=== PATIENT | male | born 1935 | race Caucasian/White ===

== ENCOUNTER 2023-09-28 10:57 | Outpatient (OUT) | payer MEDICARE, BC, SELFPAY ==
--- NOTE | 2023-09-28 11:59 | ECG_ITS ---
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
--- NOTE | 2023-09-28 11:59 | XR_ITS ---
The [address] [address] Patient Name: PATRICIA VALENZUELA MRN: [id number] date: 1935 Sex: M Assigned Patient Location: [facility] Current Patient Location: Accession/Order Number: [id number] Exam Date: 09/28/2023 13:16 Report Date: 09/29/2023 09:38 At the request of: ANGY GUDINO Procedure: XR chest 2V PROCEDURE: XR chest 2V DATE: 09/28/2023 12:16 PM CDT COMPARISONS: CT chest 12/31/2015. Chest x-ray 11/18/2015 CLINICAL INDICATION: 88 years Male RENAL FAILURE FINDINGS: The cardiomediastinal silhouette and pulmonary vasculature are within normal limits. There is slight scattered increased interstitial markings of the lungs similar to previous exams likely representing a small amount of chronic lung change. There is no evidence of consolidating infiltrates, masses or nodules on today's exam. There is no evidence of pleural effusion or pneumothorax. XR/XR chest 2V IMPRESSION: Small amount of scattered chronic lung changes. Stable chest. Electronically authenticated by: PABLO BELTRAN Date: 09/29/2023 09:38
--- NOTE | 2023-09-28 13:27 | PM.PRESUREVA ---
History of Present Illness History of Present Illness Chief complaint: temporal arteritis Narrative: Patient presents for preadmission testing accompanied by his . The patient states he has just been diagnosed with temporal arteritis after complaining about pain on the left side of his head. 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 He denies syncope, weakness, dizziness, nausea, vomiting, or any other complaints. The patient has chronic renal failure and administers home peritoneal dialysis on a nightly basis. Review of Systems ROS Narrative REVIEW OF SYSTEMS: Negative except as stated in HPI, ten or more systems reviewed. Constitutional: No fever, chills, weakness ENT: No sore throat or epistaxis Cardiovascular: No chest pain or palpitations Respiratory: Admits to AHUJA and cough when laying flat Musculoskeletal: No joint pain or swelling Gastrointestinal: No abdominal pain, constipation, diarrhea, or vomiting Psychiatric: No mood changes [facility] Medical History (Updated 09/28/23 @ 13:34 by Dianelys Roman NP) Nocturnal cough ?R05.8 - Other specified cough (ICD-10) Sleep apnea ?G47.30 - Sleep apnea, unspecified (ICD-10) Extremity edema ?R60.0 - Localized edema (ICD-10) Skin cancer ?C44.90 - Unspecified malignant neoplasm of skin, unspecified (ICD-10) Legally blind ?H54.8 - Legal blindness, as defined in [place] (ICD-10) Joint pain ?M25.50 - Pain in unspecified joint (ICD-10) GERD (gastroesophageal reflux disease) ?K21.9 - Gastro-esophageal reflux disease without esophagitis (ICD-10) Dyspnea on exertion ?R06.09 - Other forms of dyspnea (ICD-10) Wears dentures ?Z97.2 - Presence of dental prosthetic device (complete) (partial) (ICD-10) Chronic pain ?G89.29 - Other chronic pain (ICD-10) Bradycardia ?R00.1 - Bradycardia, unspecified (ICD-10) TIA (transient ischemic attack) (~2004) ?G45.9 - Transient cerebral ischemic attack, unspecified (ICD-10) Encounter for peritoneal dialysis catheter insertion ?Z49.02 - Encounter for fitting and adjustment of peritoneal dialysis catheter (ICD-10) ESRD on hemodialysis ?N18.6 - End stage renal disease (ICD-10) ?Z99.2 - Dependence on renal dialysis (ICD-10) Renal cyst ?N28.1 - Cyst of kidney, acquired (ICD-10) Macular degeneration ?H35.30 - Unspecified macular degeneration (ICD-10) Seizures ?R56.9 - Unspecified convulsions (ICD-10) Osteoarthritis of right knee ?M17.11 - Unilateral primary osteoarthritis, right knee (ICD-10) Arthritis ?M19.90 - Unspecified osteoarthritis, unspecified site (ICD-10) 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 - Arteriovenous fistula, acquired (ICD-10) Dependence on renal dialysis ?Z99.2 - Dependence on renal dialysis (ICD-10) Complication of dialysis access insertion ?T82.9XXA - Unspecified complication of cardiac and vascular prosthetic device, implant and graft, initial encounter (ICD-10) Chronic kidney disease ?N18.9 - Chronic kidney disease, unspecified (ICD-10) Anemia ?D64.9 - Anemia, unspecified (ICD-10) Diabetic neuropathy ?E11.40 - Type 2 diabetes mellitus with diabetic neuropathy, unspecified (ICD-10) Diabetes ?E11.9 - Type 2 diabetes mellitus without complications (ICD-10) Hyperlipidemia ?E78.5 - Hyperlipidemia, unspecified (ICD-10) Hypertension ?I10 - Essential (primary) hypertension (ICD-10) Renal insufficiency ?N28.9 - Disorder of kidney and ureter, unspecified (ICD-10) Lower urinary tract symptoms ?R39.9 - Unspecified symptoms and signs involving the genitourinary system (ICD-10) Elevated PSA ?R97.20 - Elevated prostate specific antigen [PSA] (ICD-10) History of nephrolithiasis ?Z87.442 - Personal history of urinary calculi (ICD-10) Temporal arteritis ?M31.6 - Other giant cell arteritis (ICD-10) Bladder cancer ?C67.9 - Malignant neoplasm of bladder, unspecified (ICD-10) Surgical History (Updated 09/28/23 @ 11:54 by Dianelys Roman NP) S/P rotator cuff repair ?Z98.890 - Other specified postprocedural states (ICD-10) History of prostate surgery ?Z98.890 - Other specified postprocedural states (ICD-10) History of hernia repair ?Z98.890 - Other specified postprocedural states (ICD-10) ?Z87.19 - Personal history of other diseases of the digestive system (ICD-10) S/P TURP ?Z90.79 - Acquired absence of other genital organ(s) (ICD-10) History of bladder surgery ?Z98.890 - Other specified postprocedural states (ICD-10) H/O local excision of skin lesion ?Z98.890 - Other specified postprocedural states (ICD-10) H/O radiofrequency ablation (RFA) of nerve of lumbar spine ?Z98.890 - Other specified postprocedural states (ICD-10) H/O cystoscopy ?Z98.890 - Other specified postprocedural states (ICD-10) Family History (Updated 09/28/23 @ 11:54 by Dianelys Roman NP) Other Dementia Family history of diabetes mellitus Family history of hypertension Social History (Updated 09/28/23 @ 12:28 by Dianelys Roman NP) Within the past year, how often did you have a drink containing alcohol: never Score interpretation: A score less than 4 is consistent with normal alcohol consumption. Smoking status: Former smoker Non-prescribed substance use: denies use Highest level of school completed/degree received: high school graduate Meds Home Medications and Allergies Home Medications ?Medication ?Instructions ?Recorded ?Confirmed ?Type amlodipine 5 mg tablet 10 mg PO DAILY 09/28/23 09/28/23 History aspirin 81 mg tablet,delayed 81 mg PO DAILY 09/28/23 09/28/23 History release (Adult Aspirin Regimen) atorvastatin 10 mg tablet 10 mg PO DAILY 09/28/23 09/28/23 History bumetanide 2 mg tablet 4 mg PO DAILY 09/28/23 09/28/23 History cholecalciferol (vitamin D3) 25 1,000 unit PO QDAY 09/28/23 09/28/23 History mcg (1,000 unit) capsule epoetin brandon 2,000 unit/mL 09/28/23 History injection solution (Epogen) glimepiride 1 mg tablet 2 mg PO BID 09/28/23 09/28/23 History ibuprofen 800 mg tablet (IBU) 800 mg PO Q8H 09/28/23 09/28/23 History levetiracetam 250 mg tablet 250 mg PO BID 09/28/23 09/28/23 History (Keppra) losartan 25 mg tablet (Cozaar) 25 mg PO DAILY 09/28/23 09/28/23 History sevelamer carbonate 800 mg tablet 1,600 mg PO TID 09/28/23 09/28/23 History (Renvela) sildenafil 50 mg tablet (Viagra) 50 mg PO DAILY PRN sexual activity 09/28/23 09/28/23 History vitamin B complex with vit C-folic 1 tab PO DAILY 09/28/23 09/28/23 History acid 800 mcg-zinc 12.5 mg tablet (RenaPlex) vitamins A,C,O-pfzw-fpijqh 4,296 1 cap PO DAILY 09/28/23 09/28/23 History mcg-226 mg-90 mg capsule (ICaps AREDS) Allergies Allergy/AdvReac Type Severity Reaction Status Date / Time No Known Drug Allergies Allergy Verified 09/28/23 12:18 Exam Narrative Exam Narrative: Constitutional: Awake, alert, comfortable, chronically ill-appearing, nontoxic, interactive, vital signs as charted Head: Normocephalic, atraumatic Neck: Supple, normal appearance, normal range of motion, no meningeal signs, no lymphadenopathy Respiratory: No respiratory distress, breath sounds clear Cardiovascular: Regular rate and rhythm, strong and regular heart tones Musculoskeletal: Normal gait, no swelling or edema Skin: Pale yellow-orange skin tone Neuro: No obvious neurological deficits Psychiatric: Oriented ?3, normal affect Assessment and Plan Assessment and Plan (1) Temporal arteritis: Plan Bilateral temporal artery biopsy scheduled with Dr. Dixon September 29, 2023.
[2023-09-28 13:29] LABS: Partial Thromboplastin Time 26.5 sec (22.3-36.2); Prothrombin Time 10.6 sec (9.0-11.6)
[2023-09-28 13:39] LABS: Hematocrit 32.4 % (42.0-54.0); Hemoglobin 10.4 g/dL (14.0-18.0); Mean Corpuscular HGB Conc 32.1 g/dL (29.9-35.2); Mean Corpuscular Hemoglobin 35.9 pg (25.9-34.0); Mean Corpuscular Volume 111.7 fL (80.0-94.0); Mean Platelet Volume 11.2 fL (9.5-13.5); Platelet Count 211 10^3/uL (150-450); Red Cell Distribution Width 12.8 % (11.0-15.0); White Blood Count 8.2 10^3/uL (4.0-11.0)
[2023-09-28 14:38] LABS: Anion Gap 18.4; BUN Creatinine Ratio 6.3; Calcium 8.6 mg/dL (8.5-10.1); Carbon Dioxide 26.7 mmol/L (21.0-32.0); Chloride 97 mmol/L (98-107); Estimated GFR (African America 8 (>=60); Estimated GFR (Non-African Ame 7 (>=60); Glucose 225 mg/dL (74-106); Potassium 4.1 mmol/L (3.5-5.1); Sodium 138 mmol/L (136-145)
[2023-09-28 15:14] LABS: Anisocytosis 1+; Basophils Abs Manual 0.08 10^3/uL (0.00-0.10); Eosinophils Absolute Manual 0.57 10^3/uL (0.00-0.70); Macrocytosis 1+; Monocytes Absolute Manual 0.24 10^3/uL (0.30-0.80); Segmented Neut Absolute Manual 6.39 10^3/uL (1.4-6.5)
== END 2023-09-28 10:58 | disposition home or self-care (01) ==
LOC: PST 11:02
PROVIDERS: PCP Family Medicine; Visit Provider Student in an Organized Health Care Education/Training Program
DX: Z01.810 Encounter for preprocedural cardiovascular examination (principal); Z01.812 Encounter for preprocedural laboratory examination; Z01.818 Encounter for other preprocedural examination
CPT/HCPCS: 36415; 71046; 80048; 85007; 85027; 85610; 85730; 93005; G0463

== ENCOUNTER 2023-09-29 11:02 | Day surgery (SDC) | payer MEDICARE, BC, SELFPAY ==
[2023-09-28 12:57] VITALS: BP 132/58; PULSE 72; TEMP 36.2; O2SAT 95; BMI 25.5
[2023-09-29 11:15] VITALS: BP 127/51; PULSE 56; TEMP 36.3; O2SAT 56; BMI 25.0
--- OUTSIDE RECORDS SUMMARY | 2023-09-29 11:22 | XMS_ITS | CCD ---
Author Organization [facility] Care Team Providers Care Dental Technician Apprentice Name Role Phone JIGNESH BURNS Attending Unavailable DefPatricia lowe MD Primary Care Provider MICHAEL SHERIDAN Referring Unavailable DEFRANCE, PATRICIA Pineda Primary Care Unavailable DEFRANCE, PATRICIA Pineda Referring Unavailable DEFRANCE, PATRICIA Pineda Primary Care Unavailable JOHNMICHAEL Mejia Referring Unavailable DEFRANCE, PATRICIA Pineda Primary Care Unavailable JOHNMICHAEL Mejia Referring Unavailable DEFRANCE, PATRICIA Pineda Primary Care Unavailable DEFRANCE, PATRICIA Pineda Referring Unavailable DEFRANCE, PATRICIA Pineda Primary Care Unavailable CHUY CASTREJON Admitting Unavailable EDUARDOCHUY SMITH Attending Unavailable DEFRANCE, PATRICIA Pineda Primary Care Unavailable MICHAEL SHERIDAN Referring Unavailable DEFRANCE, PATRICIA Pineda Primary Care Unavailable DEFRANCE, PATRICIA Pineda Attending Unavailable DEFRANCE, PATRICIA Pineda Referring Unavailable DEFRANCE, PATRICIA Pineda Primary Care Unavailable DEFRANCE, PATRICIA Pineda Attending Unavailable DEFRANCE, PATRICIA Pineda Referring Unavailable DEFRANCE, PATRICIA Pineda Primary Care Unavailable Medications Current Medications Medication Drug Class(es) Dates Sig (Normalized) Sig (Original) amLODIPine 10 mg oral tablet (8 sources) Dihydropyridine Calcium Channel Padmini Start: 09-09-2023 take 10 mg by mouth once Amlodipine Active 10 MG PO Once September 09, 2023 12:00am take 1 tablet by mouth in the mo rning amLODIPine (NORVASC) 5 mg tablet Take 1 tablet (5 mg total) by mouth in the morning. 0 Active aspirin 81 mg delayed release oral tablet (8 sources) Platelet Aggregation Inhibitor, Nonsteroidal Anti-inflammatory Drug Start: 09-09-2023 take 81 mg by mouth once daily Aspirin Active 81 MG PO Daily September 09, 2023 12:00am aspirin 81 mg ch ewable tablet Chew 1 tablet (81 mg total) and swallow once daily at bedtime. 0 Active atorvastatin 10 mg oral tablet (8 sources) HMG-CoA Reductase Inhibitor Start: 09-09-2023 take 10 mg by mouth once daily in the evening Atorvastatin Active 10 MG PO Every evening September 09, 2023 12:00am Start: 05-27-2023 atorvastatin ( LIPITOR) 10 mg tablet TAKE 1 TABLET EVERY DAY 90 tablet 3 05/27/2023 Active B Complex-Vitamin C-Folic Acid (Renal Vitamin) 0.8 mg tablet (1 source) Start: 09-09-2023 take 1 tablet by mouth once daily B Complex-Vitamin C-Folic Acid (Renal Vitamin) 0.8 mg tablet Active 1 TAB PO Daily September 09, 2023 12:00am blood-glucose meter misc (7 sources) Start: 04-06-2022 blood-glucose meter misc Freestyle Lite Glucometer, use once daily, Diagnosis: E11.9 1 each 0 04/06/2022 Active bumetanide 2 mg oral tablet (8 sources) Loop Diuretic Start: 09-09-2023 take 2 mg by mouth twice daily Bumetanide Active 2 MG PO Twice daily September 09, 2023 12:00am take 2 tablets by mo uth once daily before breakfast bumetanide (BUMEX) 2 mg tablet Take 2 tablets (4 mg total) by mouth every morning before breakfast. 0 Active cefdinir 300 mg oral capsule (5 sources) Cephalosporin Antibacterial Start: 07-07-2023 End: 08-06-2023 take 1 capsule by mouth in the morning cefDINIR (OMNICEF) 300 mg capsule Take 1 capsule (300 mg total) by mouth in the morning for 15 days. 15 capsule 0 07/22/2023 08/06/2023 Active cholecalciferol 0.025 mg oral tablet (7 sources) Vitamin D take 1 tablet by mouth in the morning cholecalciferol 1,000 units tablet Take 1 tablet (1,000 Units total) by mouth in the morning. 0 Active glimepiride 4 mg oral tablet (10 sources) Sulfonylurea Start: 09-09-2023 take 4 mg by mouth once Glimepiride Active 4 MG PO Once September 09, 2023 12:00am Start: 07-22-2023 take 0.5 tablet by m outh once daily in the morning glimepiride (AMARYL) 2 mg tablet Indications: Diabetes mellitus without complication (CMS-HCC) Take 0.5 tablets (1 mg total) by mouth every morning. 0 07/22/2023 Active Start: 07-21-2023 End: 07-22-2023 take 1 tablet by mouth once daily in the morning glimepiride (AMARYL) 2 mg tablet Indications: Diabetes mellitus without complication (CMS-HCC) Take 1 tablet (2 mg total) by mouth every morning. 90 tablet 3 07/21/2023 07/22/2023 Discontinued (Reorder) Start: 05-27-2023 End: 07-21-2023 take 1 tablet by mouth once daily before breakfast glimepiride (AMARYL) 4 mg tablet Take 1 tablet (4 mg total) by mouth every morning before breakfast. 90 tablet 3 05/27/2023 07/21/2023 Discontinued (Dose adjustment) levETIRAcetam 500 mg oral tablet (8 sources) Start: 09-09-2023 take 250 mg by mouth twice daily Levetiracetam Active 250 MG PO Twice daily September 09, 2023 12:00am take 0.5 tablet by m outh in the morning, then take 0.5 tablet by mouth at bedtime levETIRAcetam (KEPPRA) 500 mg tablet Gonsalo e 0.5 tablets (250 mg total) by mouth in the morning and 0.5 tablets (250 mg total) before bedtime. 0 Active losartan potassium 25 mg oral tablet (9 sources) Angiotensin 2 Receptor Padmini Start: 09-09-2023 take 25 mg by mouth once daily Losartan Active 25 MG PO Daily September 09, 2023 12:00am Start: 03-30-2022 End: 06-15-2023 losartan (COZAAR) 25 mg tabl et TAKE 1 TABLET EVERY DAY 90 tablet 3 06/15/2023 Active 0.3 ml methoxy polyethylene glycol-epoetin beta 0.667 mg/ml prefilled syringe (7 sources) epoetin beta, methoxy peg (MIRCERA) 200 mcg/0.3 mL syringe Inject 200 mcg as directed every 14 (fourteen) days. 0 Active NON FORMULARY (7 sources) NON FORMULARY 2 (two) times a day. I caps 0 Active sevelamer carbonate 800 mg oral tablet (10 sources) Phosphate Binder Start: 09-09-2023 take 1600 mg by mouth three times daily Sevelamer Carbonate Active 1600 MG PO Three times daily September 09, 2023 12:00am Start: 05-30-2023 sevelamer (ESTRELLA CHEEMA) 800 mg tablet Take 2 tablets (1,600 mg total) by mouth in the morning and 2 tablets (1,600 mg total) at noon and 2 tablets (1,600 mg total) in the evening. Take with meals. 180 tablet 11 05/30/2023 Active Start: 03-01-2023 End: 05-30-2023 sevelamer (RENVELA) 800 mg t ablet End: 05-30-2023 take 2 tablets by mouth three times daily at mealtime SEVELAMER HCL ORAL Take 2 tablets by mouth 3 (three) times a day with meals. 0 05/30/2023 Discontinued sildenafil 50 mg oral tablet (6 sources) Phosphodiesterase 5 Inhibitor Start: 06-02-2023 sildenafiL (VIAGRA) 50 mg tablet Take 1 tablet (50 mg total) by mouth as needed for erectile dysfunction. 20 tablet 3 06/02/2023 Active vit B complx C/folic acid/zinc (RENAPLEX ORAL) (7 sources) take 1 tablet by mouth in the morning vit B complx C/folic acid/zinc (RENAPLEX ORAL) Take 1 tablet by mouth in the morning. 0 Active Vit C-E-Zinc Te-Oywp-Klm-Zeax (Icaps Areds2) 250 mg-200 unit -12.5 mg-1 mg capsule (1 source) Start: 09-09-2023 take 1 capsule by mouth twice daily Vit C-E-Zinc Go-Bxbo-Kwj-Zeax (Icaps Areds2) 250 mg-200 unit -12.5 mg-1 mg capsule Active 1 CAP PO Twice daily September 09, 2023 12:00am Problems Active Problems Problem Classification Problem Date Documented Date Episodic/Chronic Cancer of bladder (17 sources) Malignant tumor of urinary bladder; Translations: [Malignant neoplasm of bladder, unspecified] Onset: 05-04-2016 03-11-2023 Chronic Chronic kidney disease (20 sources) Anemia in chronic kidney disease; Translations: [Chronic kidney disease, unspecified] Onset: 10-12-2019 10-12-2019 Chronic Deficiency and other anemia (1 source) Anemia in chronic kidney disease; Translations: [Anemia in chronic kidney disease] Onset: 07-13-2023 Chronic Diabetes mellitus with complications (10 sources) Renal disorder due to type 2 diabetes mellitus; Translations: [Type 2 diabetes mellitus with diabetic nephropathy] Onset: 03-29-2017 03-29-2017 Chronic Diabetes mellitus without complication (9 sources) Diabetes mellitus without complication; Translations: [Type 2 diabetes mellitus without complications] Onset: 03-29-2017 Resolved: 03-29-2017 03-29-2017 Chronic Disorders of lipid metabolism (7 sources) Hyperlipidemia; Translations: [Hyperlipidemia, unspecified] Onset: 03-29-2017 03-29-2017 Chronic Essential hypertension (7 sources) Benign essential hypertension; Translations: [Essential (primary) hypertension] Onset: 03-29-2017 03-29-2017 Chronic Osteoarthritis (14 sources) Osteoarthritis of right knee joint; Translations: [Unilateral primary osteoarthritis, right knee] Onset: 10-02-2020 11-24-2021 Chronic Other circulatory disease (8 sources) Acquired arteriovenous fistula; Translations: [Arteriovenous fistula, acquired] Onset: 07-22-2020 07-22-2020 Chronic Other circulatory disease (1 source) Arteriovenous fistula, acquired; Translations: [Arteriovenous fistula, acquired] Onset: 07-22-2020 Chronic Other ear and sense organ disorders (1 source) Otalgia, left ear; Translations: [Otalgia, left ear] Onset: 09-13-2023 Episodic Other ear and sense organ disorders (1 source) Impacted cerumen; Translations: [Impacted cerumen, left ear] 09-09-2023 Episodic Other ear and sense organ disorders (1 source) Impacted cerumen, left ear; Translations: [Impacted cerumen] 09-09-2023 Episodic Other lower respiratory disease (1 source) Dyspnea, unspecified; Translations: [Dyspnea, unspecified] Onset: 06-28-2023 Episodic Otitis media and related conditions (2 sources) Otitis media of left ear; Translations: [Otitis media, unspecified, left ear] 09-09-2023 Episodic Pneumonia (except that caused by tuberculosis or sexually transmitted disease) (2 sources) Bronchopneumonia; Translations: [Bronchopneumonia, unspecified organism] Onset: 07-07-2023 07-07-2023 Episodic Retinal detachments; defects; vascular occlusion; and retinopathy (9 sources) 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; Translations: [Exudative age-related macular degeneration, left eye, stage unspecified] Onset: 12-11-2020 11-03-2021 Chronic Unclassified (1 source) Other specified cough; Translations: [Other specified cough] Onset: 06-28-2023 Unclassified (1 source) Malignant neoplasm of urinary bladder, unspecified site ([facility]) [C67.9] Onset: 04-12-2023 Unclassified (1 source) Routine Check up Onset: 07-07-2023 Past or Other Problems Problem Classification Problem Date Documented Date Episodic/Chronic Calculus of urinary tract (14 sources) Kidney stone; Translations: [Calculus of kidney] Onset: 05-04-2016 02-21-2017 Episodic Complication of device; implant or graft (7 sources) Complication of dialysis; Translations: [Unspecified complication of cardiac and vascular prosthetic device, implant and graft, initial encounter] Onset: 05-26-2020 05-26-2020 Episodic Deficiency and other anemia (7 sources) Iron deficiency anemia; Translations: [Iron deficiency anemia, unspecified] Onset: 06-08-2022 06-08-2022 Episodic Epilepsy; convulsions (9 sources) Seizure; Translations: [Unspecified convulsions] Onset: 03-10-2021 03-10-2021 Episodic Genitourinary symptoms and ill-defined conditions (14 sources) Lower urinary tract symptoms; Translations: [Unspecified symptoms and signs involving the genitourinary system] Onset: 05-04-2016 10-17-2018 Episodic Mood disorders (7 sources) Mood disorders Onset: 04-05-2023 Resolved: 07-07-2023 04-05-2023 Other diseases of kidney and ureters (14 sources) Cyst of kidney; Translations: [Cyst of kidney, acquired] Onset: 05-04-2016 07-12-2022 Episodic Other diseases of kidney and ureters (14 sources) Renal impairment; Translations: [Disorder of kidney and ureter, unspecified] Onset: 05-04-2016 07-12-2022 Episodic Other non-traumatic joint disorders (7 sources) Hip pain; Translations: [Pain in left hip] Onset: 03-29-2017 Resolved: 10-01-2019 10-01-2019 Episodic Other screening for suspected conditions (not mental disorders or infectious disease) (15 sources) Raised prostate specific antigen; Translations: [Elevated prostate specific antigen [PSA]] Onset: 05-04-2016 11-27-2019 Episodic Unclassified (7 sources) Onset: 09-01-2018 09-01-2018 Results Test Name Value Interpretation Reference Range Facility POCT Hemoglobin A1C - [facility] 07-21-2023 HbA1c (Bld) [Mass fraction] 6.5 % Abnormal 4 - 6 [facility] Interpretation and review of laboratory results Abnormal [facility] HEMOGLOBINon 07-13-2023 Hemoglobin (Bld) [Mass/Vol] 10.0 g/dL Low 13.0-17.0 [facility] Comment on above: Performed By: #### 7 18-7 ####[facility] ([id number])[address] [place] [address] XR CHEST 2 VWSon 06-28-2023 XR CHEST 2 VWS XR CHEST 2 VWS PA and lateral chest: HISTORY: Cough. 2 views the chest are obtained compared to prior exam dated 11/07/2019. There is new bilateral lower lobe infiltrates, right worse than left. No pneumothorax is seen. Suspect changes of COPD. Osseous structures are intact. Cardiac contour is stable. IMPRESSION: COPD and bilateral lower lobe infiltrates. Finalized by Carlos Stewart MD on 06/28/2023 3:39 PM Normal [facility] HEMOGLOBINon 05-25-2023 Hemoglobin (Bld) [Mass/Vol] 9.4 g/dL Low 13.0-17.0 [facility] Comment on above: Performed By: #### 7 18-7 ####[facility] ([id number])[address] [facility], [address] [place] [address] CBC AND AUTO DIFFon 04-20-20 23 ABSOLUTE BASOPHIL 0.1 X10E9/L Normal 0.0-0.2 [facility] Comment on above: Performed By: #### C BCA, 2857-1, CMP, 54902-1, THYR #### [facility] ([id number]) [address], [address] [place] [address] ABSOLUTE NEUTROPHIL 5.6 X10E9/L Normal 1.5-6.6 [facility] Comment on above: Performed By: #### Jennifer BCA, 2857-1, CMP, 44432-0, THYR #### [facility] ([id number]) [address], [address] [place] [address] Basophils/100 WBC (Bld) 1.0 % Normal [facility] Comment on above: Performed By: #### Jennifer BCA, 2857-1, CMP, 10084-3, THYR #### [facility] ([id number]) [address], [address] [place] [address] Eosinophils (Bld) [#/Vol] 0.7 10*3/uL High 0.0-0.4 [facility] Comment on above: Performed By: #### Jennifer BCA, 2857-1, CMP, 42823-1, THYR #### [facility] ([id number]) [address], [address] [place] [address] Eosinophils/100 WBC (Bld) 8.4 % Normal [facility] Comment on above: Performed By: #### Jennifer BCA, 2857-1, CMP, 62920-3, THYR #### [facility] ([id number]) [address], [address] [place] [address] Erythrocyte distribution width (RBC) [Ratio] 12.1 % Normal 11.5-15.0 [facility] Comment on above: Performed By: #### Jennifer BCA, 2857-1, CMP, 69705-5, THYR #### [facility] ([id number]) [address], [address] [place] [address] Hematocrit (Bld) [Volume fraction] 27.2 % Low 39-49 [facility] Comment on above: Performed By: #### C BCA, 2857-1, CMP, 19259-2, THYR #### [facility] ([id number]) [address], [address] [place] [address] Hemoglobin (Bld) [Mass/Vol] 9.4 g/dL Low 13.0-17.0 [facility] Comment on above: Performed By: #### Jennifer BCA, 2857-1, CMP, 08924-1, THYR #### [facility] ([id number]) [address], [address] [place] [address] Lymphocytes (Bld) [#/Vol] 0.8 10*3/uL Low 1.0-3.5 [facility] Comment on above: Performed By: #### Jennifer BCA, 2857-1, CMP, 36612-6, THYR #### [facility] ([id number]) [address], [address] [place] [address] Lymphocytes/100 WBC (Bld) 9.6 % Normal [facility] Comment on above: Performed By: #### Jennifer BCA, 2857-1, CMP, 79403-3, THYR #### [facility] ([id number]) [address], [address] [place] [address] MCH (RBC) [Entitic mass] 36.7 pg High 27-34 [facility] Comment on above: Performed By: #### C BCA, 2857-1, CMP, 83336-9, THYR #### [facility] ([id number]) [address], [address] [place] [address] MCHC (RBC) [Mass/Vol] 34.4 g/dL Normal 32-36 [facility] Comment on above: Performed By: #### C BCA, 2857-1, CMP, 42654-5, THYR #### [facility] ([id number]) [address], [address] [place] [address] MCV (RBC) [Entitic vol] 107 fL High 80-100 [facility] Comment on above: Performed By: #### Jennifer BCA, 2857-1, CMP, 35805-9, THYR #### [facility] ([id number]) [address], [address] [place] [address] Monocytes (Bld) [#/Vol] 0.8 10*3/uL Normal 0-0.9 [facility] Comment on above: Performed By: #### Jennifer BCA, 2857-1, CMP, 15536-0, THYR #### [facility] ([id number]) [address], [address] [place] [address] Monocytes/100 WBC (Bld) 10.6 % Normal [facility] Comment on above: Performed By: #### Jennifer BCA, 2857-1, CMP, 69245-7, THYR #### [facility] ([id number]) [address], [address] [place] [address] Neutrophils/100 WBC (Bld) 70.4 % Normal [facility] Comment on above: Performed By: #### Jennifer BCA, 2857-1, CMP, 96118-5, THYR #### [facility] ([id number]) [address], [address] [place] [address] Platelet mean volume (Bld) [Entitic vol] 9.9 fL Normal 7-12 [facility] Comment on above: Performed By: #### Jennifer BCA, 2857-1, CMP, 84981-6, THYR #### [facility] ([id number]) [address], [address] [place] [address] Platelets (Bld) [#/Vol] 199 10*3/uL Normal 150-450 [facility] Comment on above: Performed By: #### Jennifer BCA, 2857-1, CMP, 09829-2, THYR #### [facility] ([id number]) [address], [address] [place] [address] RBC COUNT 2.55 X10E12/L Low 4.10-5.70 [facility] Comment on above: Performed By: #### C BCA, 2857-1, CMP, 50673-8, THYR #### [facility] ([id number]) [address], [address] [place] [address] WBC (Bld) [#/Vol] 8.0 10*3/uL Normal 4.0-11.0 [facility] Comment on above: Performed By: #### C BCA, 2857-1, CMP, 54316-9, THYR #### [facility] ([id number]) [address], [address] [place] [address] COMPREHENSIVE METABOLIC PANE Khai 04-20-2023 Albumin [Mass/Vol] 3.8 g/dL Normal 3.2-5.3 [facility] Comment on above: Performed By: #### C BCA, 2857-1, CMP, 63527-7, THYR #### [facility] ([id number]) [address], [address] [place] [address] ALP [Catalytic activity/Vol] 83 U/L Normal 39-130 [facility] Comment on above: Performed By: #### C BCA, 2857-1, CMP, 06637-0, THYR #### [facility] ([id number]) [address], [address] [place] [address] ALT [Catalytic activity/Vol] 13 U/L Normal 0-40 [facility] Comment on above: Performed By: #### C BCA, 2857-1, CMP, 79678-3, THYR #### [facility] ([id number]) [address], [address] [place] [address] Anion gap [Moles/Vol] 12 mmol/L Normal 5-15 [facility] Comment on above: Performed By: #### C BCA, 2857-1, CMP, 60251-2, THYR #### [facility] ([id number]) [address], [address] [place] [address] AST [Catalytic activity/Vol] 16 U/L Normal 0-41 [facility] Comment on above: Performed By: #### C BCA, 2857-1, CMP, 07044-0, THYR #### [facility] ([id number]) [address], [address] [place] [address] Bilirubin [Mass/Vol] 0.5 mg/dL Normal 0.3-1.2 [facility] Comment on above: Performed By: #### C BCA, 2857-1, CMP, 82383-6, THYR #### [facility] ([id number]) [address], [address] [place] [address] Calcium [Mass/Vol] 8.4 mg/dL Low 8.5-10.5 [facility] Comment on above: Performed By: #### C BCA, 2857-1, CMP, 14846-5, THYR #### [facility] ([id number]) [address], [address] [place] [address] Chloride [Moles/Vol] 100 mmol/L Normal 98-109 [facility] Comment on above: Performed By: #### C BCA, 2857-1, CMP, 57546-1, THYR #### [facility] ([id number]) [address], [address] [place] [address] CO2 [Moles/Vol] 27 mmol/L Normal 22-32 [facility] Comment on above: Performed By: #### C BCA, 2857-1, CMP, 66400-2, THYR #### [facility] ([id number]) [address], [address] [place] [address] Creatinine [Mass/Vol] 6.52 mg/dL High 0.60-1.30 [facility] Comment on above: Result Comment: METH OD TRACEABLE TO IDMS STANDARD Performed By: #### C ROSSANA, 2857-1, CMP, 49284-2, THYR #### [facility] ([id number]) [address], [address] [place] [address] GFR/1.73 sq M.predicted among non-blacks MDRD (S/P/Bld) [Vol rate/Area] 8 mL/min/{1.73_m2} Low >59 [facility] Comment on above: Result Comment: Reported eGFR is based on the CKD-EPI 2020 equation that does not use a race coefficient. Performed By: #### C BCA, 2857-1, CMP, 78880-7, THYR #### [facility] ([id number]) [address], [address] [place] [address] Glucose [Mass/Vol] 124 mg/dL High 65-99 [facility] Comment on above: Performed By: #### C BCA, 2857-1, CMP, 74648-6, THYR #### [facility] ([id number]) [address], [address] [place] [address] Potassium [Moles/Vol] 4.4 mmol/L Normal 3.5-5.0 [facility] Comment on above: Performed By: #### C BCA, 2857-1, CMP, 83110-2, THYR #### [facility] ([id number]) [address], [address] [place] [address] Protein [Mass/Vol] 6.4 g/dL Normal 6.0-8.0 [facility] Comment on above: Performed By: #### C BCA, 2857-1, CMP, 30394-3, THYR #### [facility] ([id number]) [address], [address] [place] [address] Sodium [Moles/Vol] 139 mmol/L Normal 134-146 [facility] Comment on above: Performed By: #### C BCA, 2857-1, CMP, 70982-2, THYR #### [facility] ([id number]) [address], [facility] [address] [place] [address] Urea nitrogen [Mass/Vol] 45 mg/dL High 09-18 [facility] Comment on above: Performed By: #### C BCA, 2857-1, CMP, 57173-1, THYR #### [facility] ([id number]) [address] [facility] [facility] [address] [place] [address] HGB A1C (GLYCO-HGB)on 2022 Glucose [Mass/Vol] 148 mg/dL Normal [facility] Comment on above: Performed By: #### C BCA, 2857-1, CMP, 44246-0, THYR #### [facility] ([id number]) [address] [facility], [address] [address] HbA1c (Bld) [Mass fraction] 6.8 % High 4.4-5.6 [facility] Comment on above: Result Comment: NOTE ADA Guidelines Result HgbA1c Normal : less than 5.7 % Prediabetes : 5.7 % to 6.4 % Diabetes : > 6.4 % Use with caution in patients with abnormal hemoglobin variants as the half-life of red blood cells and in vivo glycation rates are affected. Performed By: #### C BCA, 2857-1, CMP, 36774-4, THYR #### [facility] ([id number]) [address] [facility] [address] [place] [address] Lipid 1996 panelon Cholesterol [Mass/Vol] 97 mg/dL Low 150-200 [facility] Comment on above: Performed By: #### C BCA, 2857-1, CMP, 03444-6, THYR #### [facility] ([id number]) [address], [address] [place] [address] Cholesterol in HDL [Mass/Vol] 40 mg/dL Normal >39 [facility] Comment on above: Result Comment: HDL <40 mg/dL - High Risk HDL > or = 40mg/dL- Desirable HDL >60 mg/dL - Negative Risk Performed By: #### C BCA, 2857-1, CMP, 41849-3, THYR #### [facility] ([id number]) [address], [address] [place] [address] Cholesterol in LDL [Mass/Vol] 38 mg/dL Normal <130 [facility] Comment on above: Result Comment: LDL <100 mg/dL - Desirable LDL >160 mg/dL - High Risk Performed By: #### Jennifer BCA, 2857-1, CMP, 00632-9, THYR #### [facility] ([id number]) [address], [address] [place] [address] Cholesterol in VLDL [Mass/Vol] 19 mg/dL Normal 0-30 [facility] Comment on above: Performed By: #### Jennifer BCA, 2857-1, CMP, 18179-5, THYR #### [facility] ([id number]) [address], [address] [place] [address] CHOLESTEROL:HDL 2.4 Normal 1.0-5.0 [facility] Comment on above: Performed By: #### Jennifer BCA, 2857-1, CMP, 05347-3, THYR #### [facility] ([id number]) [address], [address] [place] [address] Triglyceride [Mass/Vol] 97 mg/dL Normal 27-150 [facility] Comment on above: Performed By: #### C BCA, 2857-1, CMP, 36684-1, THYR #### [facility] ([id number]) [address], [address] [place] [address] MICROALBUMIN - ALBUMIN:CREAT ININE URINE RATIOon 04-20-2023 ALB/CREAT RATIO 374.7 mg/g creat High 0.0-30.0 [facility] Comment on above: Performed By: #### M ALBU #### [facility] ([id number]) [address], [address] [place] [address] Albumin DL <= 20 mg/L (U) [Mass/Vol] 24.5 mg/dL High 0.0-1.9 [facility] Comment on above: Performed By: #### M ALBU #### [facility] ([id number]) [address], [address] [place] [address] URINE CREAT 65.38 mg/dL Normal [facility] Comment on above: Performed By: #### M ALBU #### [facility] ([id number]) [address], [address] [place] [address] Prostate specific Ag [Mass/V ol]on 04-20-2023 PSA SCREEN 4.67 ng/mL High 0.00-4.00 [facility] Comment on above: Result Comment: The method used for this test is Flaquita Rosalia DXI chemiluminescent immunoassay. Values obtained by different assay methods cannot be used interchangeably. Performed By: #### C BCA, 2857-1, CMP, 89068-3, THYR #### [facility] ([id number]) [address], [address] [place] [address] THYROID PROFILEon 04-20-2023 Free T4 [Mass/Vol] 0.80 ng/dL Normal 0.61-1.60 [facility] Comment on above: Performed By: #### C BCA, 2857-1, CMP, 17181-8, THYR #### [facility] ([id number]) [address] [place] [address], [address] [place] [address] TSH 3.93 uIU/mL Normal 0.49-4.67 [facility] Comment on above: Performed By: #### C BCA, 2857-1, CMP, 39454-0, THYR #### [facility] ([id number]) [address] [place] [address], [address] [place] [address] Cytologyon 04-12-2023 Cytology Normal [facility] Comment on above: Result Comment: [facility] [address] [place] [address] Cytology Consultation Patient Name:PATRICIA VALENZUELA:1935 (Age: 87)Gender:MTaken:04/12/2023Reported:04/13/2023 16:24Physician(s):Chuy Castrejon M.D. ([phone])Copy To: Rec. #:[id number]: #[id number] Final Cytologic Diagnosis Voided urine: Atypical urothelial cells present. [facility]/04/13/2023 [place] [address], License number: [id number].Electronically Signed Out By Lukas Slade MD Clinical History History of bladder cancer. Gross Description Received was 110 mL of yellow fluid labeled as Valenzuela, voided urine .Preservative added. 55 mL used for Cytology. See UroVysion report. 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 Please refer to the [facility] Test Catalog for instructions on optimizing urine collection and preservation for FISH. Interpretation See Note Fluorescence in situ hybridization (FISH) interpretation was not possible due to a lack of hybridization signals. ADDITIONAL INFORMATION Fluorescence in situ hybridization (FISH) with centromere probes for chromosomes 3 (D3Z1), 7(D7Z1), 17(D17Z1), and a locus specific probe for 9p21 ([employer] [place], [place]). This test has been modified from the service plumber's instructions. Its performance characteristics were determined by [facility] in a manner consistent with CLIA requirements. This test has not been cleared or approved by the U.S. Food and Drug Administration. Reason for Referral Evaluate for urothelial carcinoma. Specimen Varies Source Urine, NOS Released By Faviola Hernandez M.D. Test Performed by: [facility] - [address] [address] Child Welfare Social Worker: Justo Hardy M.D. Ph.D.; CLIA# [id number] Performed By: #### 3 0896-5 #### [facility] ([id number]) [address] [place] [address], [place] [address] HEMOGLOBINon 04-11-2023 Hemoglobin (Bld) [Mass/Vol] 9.8 g/dL Low 13.0-17.0 [facility] Comment on above: Performed By: #### 7 -7 #### [facility] ([id number]) [address] [place] [address], [address] [place] [address] 36on 02-23-2022 36 Committee 02/22/22: Coordinator contacted the patient regarding the committee decision. Coordinator explained that the committee decided he was not a candidate for transplant due to his multiple medical comorbidities. The patient responded with asking if we are going to attend his . Coordinator explained that the committee feels transplant would do him more harm than good and that is why they made this decision. Patient hung up with another negative remark. Maricarmen Ware RN [facility] Vital Signs Date Time Vital Sign Value Performing Clinician Stui luis manuel 09-09-2023 10:01-0400 Body height 170.18 cm [facility] 09-09-2023 10:01-0400 Body mass index (BMI) [Ratio] 26 kg/m2 [facility] 09-09-2023 10:01-0400 Body temperature 98.3 [degF] [facility] 09-09-2023 10:01-0400 Body weight 75.4 kg [facility] 09-09-2023 10:01-0400 Diastolic blood pressure 52 mm[Hg] [facility] 09-09-2023 10:01-0400 Heart rate 60 /min [facility] 09-09-2023 10:01-0400 Respiratory rate 16 /min [facility] 09-09-2023 10:01-0400 SaO2% (BldA) [Mass fraction] 98 % [facility] 09-09-2023 10:01-0400 Systolic blood pressure 123 mm[Hg] [facility] 07-21-2023 13:20-0400 Body mass index (BMI) [Ratio] 25.54 kg/m2 [facility] 07-21-2023 13:20-0400 Body weight 76.2 kg [facility] 1 [facility] 07-07-2023 11:20-0400 Body height 172.7 cm Patricia Starr MD Work Phone: [facility] 07-07-2023 11:20-0400 Body mass index (BMI) [Ratio] 24.94 kg/m2 Patricia Starr MD Work Phone: [facility] 07-07-2023 11:20-0400 Body weight 74.39 kg Patricia Starr MD Work Phone: [facility] 07-07-2023 11:20-0400 Diastolic blood pressure 70 mm[Hg] Patricia Starr MD Work Phone: [facility] 07-07-2023 11:20-0400 Heart rate 72 /min Patricia Starr MD Work Phone: [facility] 07-07-2023 11:20-0400 Respiratory rate 16 /min Patricia Starr MD Work Phone: [facility] 07-07-2023 11:20-0400 Systolic blood pressure 114 mm[Hg] Patricia Starr MD Work Phone: [facility] Encounters Encounter Date Encounter Type Care Provider Facility Start: 09-13-2023 End: 09-13-2023 ambulatory [facility] Start: 09-09-2023 End: 09-09-2023 ambulatory [facility] Work Phone: Start: 09-09-2023 End: 09-09-2023 Patient encounter procedure [facility] Work Phone: Start: 07-22-2023 Refill Kate Mckinney LPN [facility] Comment on above: Diabetes mellitus wi thout complication ([facility]) Start: 07-21-2023 End: 07-21-2023 Clinical Support [address] Medication Therapy Management Comment on above: Diabetes mellitus wi thout complication ([facility]) (Primary Dx) Start: 07-13-2023 End: 07-14-2023 ambulatory MICHAEL Hamilton JOHN [facility] Start: 07-07-2023 End: 07-07-2023 ambulatory [facility] Start: 07-07-2023 End: 07-07-2023 Office outpatient visit 25 minutes Patricia Starr MD Work Phone: [facility] Comment on above: Bronchopneumonia (Pr imary Dx); End stage renal disease ([facility]); Exudative age-related macular degeneration of left eye, unspecified stage ([facility]); Dependence on renal dialysis ([facility]); Malignant neoplasm of urinary bladder, unspecified site ([facility]); Arteriovenous fistula, acquired ([facility]); Seizures ([facility]); Diabetic nephropathy associated with type 2 diabetes mellitus ([facility]) Start: 07-05-2023 Telephone encounter Kate English [facility] Start: 06-28-2023 End: 06-29-2023 ambulatory [facility] Start: 06-15-2023 Refill Michael Mejia Work Phone: [facility] Start: 06-02-2023 Orders Only Michael Mejia Work Phone: [facility] Start: 05-29-2023 Refill Michael Mejia Work Phone: Yumiko Triplett [facility] Start: 05-25-2023 End: 05-26-2023 ambulatory [facility] Start: 04-20-2023 End: 04-21-2023 ambulatory PATRICIA STARR [facility] Start: 04-12-2023 End: 04-12-2023 Evaluation and management of inpatient CHUY Fe CASTREJON [facility] Start: 04-11-2023 End: 04-12-2023 ambulatory [facility] Start: 03-29-2023 End: 03-29-2023 ambulatory JIGNESH BURNS Not Available Procedures Date Procedure Procedure Detail Performing Clinician Start: 09-13-2023 Follow-up visit Follow-up PATRICIA STARR Start: 07-21-2023 Hemoglobin glycosyla [facility] Work Phone: Start: 07-07-2023 Adult depression scr eening assessment Patricia Starr MD Work Phone: Start: 04-05-2023 Adult depression scr eening assessment Michael Sheridan MD Work Phone: Plan of Treatment Date Care Activity Detail Author Start: 09-22-2029 DTaP,Tdap and Td Vaccines (2 - Td or Tdap) DTaP,Tdap and Td Vaccines (2 - Td or Tdap) [facility] Start: 07-20-2024 Adult BMI Screening Adult BMI Screen ing [facility] Start: 07-06-2024 Adult BMI Screening Adult BMI Screen ing [facility] Start: 07-06-2024 Depression Screening Depression Scre ening [facility] Start: 07-06-2024 Fall Risk Screening Fall Risk Screen ing [facility] Start: 07-06-2024 Tobacco Screening Tobacco Screening [facility] Start: 04-12-2024 Tobacco Screening Tobacco Screening [facility] Start: 04-05-2024 Adult BMI Screening Adult BMI Screen ing [facility] Start: 04-05-2024 Depression Screening Depression Scre ening [facility] Start: 04-05-2024 Fall Risk Screening Fall Risk Screen ing [facility] Start: 10-25-2023 End: 10-25-2023 Clinical Support 10/25/2023 1:00 PM EDT Clinical Support [facility] Medication Therapy Management [address] [place] [address] [facility] Start: 10-06-2023 End: 10-06-2023 Patient encounter procedure 10/06/2023 11:00 AM EDT Office Visit [facility] [address] [place] [id number] Patricia Starr MD [address] [place] [address] [facility] Start: 10-05-2023 Medicare Annual Well ness Visit Medicare Annual Wellness Visit [facility] Start: 07-21-2023 End: 07-21-2023 Clinical Support 07/21/2023 1:00 PM EDT Clinical Support [facility] Medication Therapy Management [address] [place] [address] [facility] Start: 07-07-2023 End: 07-07-2023 Patient encounter procedure 07/07/2023 11:15 AM EDT Office Visit [facility] [address] [place] [address] Patricia Starr MD [address] [place], [place] [id number] [facility] Start: 12-24-2022 COVID-19 Vaccine ( season) COVID-19 Vaccine () [facility] Start: 12-24-2022 Influenza vaccination Influenza Vacc ine [facility] Start: 1953 Adult BMI Follow Up Plan Adult BMI Follow Up Plan [facility] Immunizations Immunization Date Immunization Notes Care Provider Fa cili 01-31-2023 zoster vaccine recombinant Michael Sheridan MD Work Phone: [facility] 12-02-2022 zoster vaccine recombinant Michael Sheridan MD Work Phone: [facility] 06-12-2020 COVID-19, mRNA, LNP- S, PF, 100mcg/0.5mL Dose Michael Sheridan MD Work Phone: [facility] 05-16-2020 COVID-19, mRNA, LNP- S, PF, 100mcg/0.5mL Dose Michael Sheridan MD Work Phone: [facility] 09-23-2019 tetanus toxoid, redu france diphtheria toxoid, and acellular pertussis vaccine, adsorbed Michael Sheridan MD Work Phone: [facility] Payers Date Payer Category Payer Unknown [id number] 2016 Unknown JIM SANDERS [id number] 2016-Present [phone] [address] [place] [address] [id number] 2002 Medicare [id number] 2002 Medicare MEDICARE MEDICAR E PART A & B [id number] 2002-Present [phone] [address] [place] [address] [id number] 1937 Unknown [id number] 59 1935 Unknown [id number] 86 1935 Unknown [id number] 86 1937 Unknown [id number] 86 1937 Unknown [id number] 86 1937 Unknown [id number] 86 1937 Unknown [id number] 86 1937 Unknown [id number] 86 1935 Unknown [id number] 86 1935 Unknown [id number] 86 Social History Date Type Detail Facility Start: 04-05-2022 End: 09-09-2023 Tobacco smoking status [facility] Ex-smoker [facility] End: 04-05-1978 History of tobacco use Current smoker [facility] End: 04-05-1978 History of tobacco use Cigarette Smoker [facility] Start: 05-08-2020 End: 04-05-2022 Cigarettes smoked current (pack per day) - Reported 2 [facility] Start: 04-05-2022 Tobacco use and exposure Smokeless tobacco non-user [facility] Start: 04-13-2023 End: 07-07-2023 Alcohol intake Ex-drinker (finding) [facility] Start: 11-06-2019 End: 05-08-2020 Social connection and isolation panel [facility] Do you belong to any clubs or organizations such as adventism groups, unions, fraternal or athletic groups, or school groups? Yes [facility] Are you now , , , , never or living with a partner? [facility] How often to you hav e a drink containing alcohol? Never [facility] How many standard dr inks containing alcohol do you have on a typical day? Patient declined [facility] Do you feel stress - tense, restless, nervous, or anxious, or unable to sleep at night because your mind is troubled all the time - these days [OSQ] Not at all [facility] Start: 11-06-2019 Education 14 [facility] Start: 09-29-2017 Alcohol Comment rarely [facility] Start: 1935 Sex Assigned At Male [facility] Start: 12-04-2018 Gender identity Identifies as male gender (finding) [facility] Start: 12-04-2018 Sexual orientation Heterosexual (finding) [facility] Medical Equipment Procedure Code Equipment Code Equipment Origin al Text Equipment Identifier Dates Kit Ct 62.5cm S wnck Crlcth Prtnl Lt 2 Cuf - S - [id number] Start: 12-03-2021 TEST ONCE DAILY [id number] Start: 03-21-2023 Lancets for Freestyle Lite, test once a day, Diagnosis: E11.9 [id number] Start: 04-06-2022 Clinical Notes 02-23-2022 to 07-22-2023 Telephone Encounter - Kate Mckinney LPN - 07/22/2023 11:16 AM EDTTelephone Encounter - Patricia Starr MD - 07/22/2023 11:16 AM EDTTelephone Encounter - Kate Mckinney LPN - 07/22/2023 11:16 AM EDT Note Date & Type Note Facility 07-22-2023 Miscellaneous Notes Telecom from Patricia, was given medication for 15 days and was told to call you when it was done, he has finished it, still has a cough, can take a deep breath now. He also wanted you to know Jobst has increased his Glimepiride by 1/2 tablet Please let pt know that I refilled the cefdinir for 15 d more notified of message and she verbalizes understanding. Misunderstood the Glimepiride was decreased to 1/2 tab daily documented in this encounter [facility] 07-22-2023 Telephone encounter Note Telecom from Patricia, was given medication for 15 days and was told to call you when it was done, he has finished it, still has a cough, can take a deep breath now. He also wanted you to know Jobst has increased his Glimepiride by 1/2 tablet [facility] 07-22-2023 Telephone encounter Note Please let pt know that I refilled the cefdinir for 15 d more [facility] 07-22-2023 Telephone encounter Note notified of message and she verbalizes understanding. Misunderstood the Glimepiride was decreased to 1/2 tab daily [facility] 07-21-2023 History of Present illness Narrative [facility]ER[facility]NAGEMENT [address] [facility] [address] Subjective SUBJECTIVE: Referring Provider: Patricia Starr [facility] Referring Provider: Yes Consult Agreement: Yes Employee Program:No At last PharmD visit, no changes were made as A1C was well controlled with lifestyle changes. Patricia Valenzuela is a 88 y.o. (White or [1]) male who presents for an initial MTM visit of Type 2 Diabetes Mellitus. Patricia Valenzuela is accompanied by his no relatives. Patient reports his PCP reduced his glimepiride to 4 mg daily in March since his glucose has been so well controlled. He reports he has been working through a cough. He notes the medication he was prescribed has helped. Finally, patient reports he does not each much throughout the day any longer. Pertinent current medications include: Glimepiride 4 mg daily Pertinent previous medications include: Metformin- stopped with renal dysfunction PERTINENT PAST MEDICAL HISTORY: Chronic Kidney Disease: Yes- on dialysis Atherosclerotic Cardiovascular Disease (ASCVD): No Heart Failure with Reduced/Preserved Ejection Fraction: No Pancreatitis/Gastroparesis: Unknown Medullary Thyroid Carcinoma: Unknown Bariatric Surgery: Unknown Genitourinary Fungal Infections: Unknown DIET: 1 meal/day Breakfast: 2-PB cookies and coffee Lunch: egg sandwich Dinner: Lunchable Snacks: Popcorn, lunchables Drinks: coffee, water Patient reports his appetite has been down and he has been eating less overall EXERCISE: Reports knees are bone on bone w/significant pain. Unable to exercise due to pain Patient plans to start walking around home about 10-15 mins per day TESTING Home blood glucose: Patient checks blood glucose once daily. Blood Glucose Device Brand: Unknown Diabetic Supplier: Unknown Retail Date FBG AC [facility] Patient reports his glucose has been 118-150s Has not been over 150s Objective OBJECTIVE: Vitals: Wt 76.2 kg (168 lb) BMI 25.54 kg/m Caffeine intake within 60 minutes: No Height: Weight: Wt Readings from Last 3 Encounters: 07/07/23 74.4 kg (164 lb) 04/05/23 77.1 kg (170 lb) 10/05/22 75.3 kg (166 lb) Weight Trend: Not assessed. BMI: There is no height or weight on file to calculate BMI. A1c: Lab Results Component Value Date HGBA1C 6.8 (H) 04/20/2023 [id number] 6.9 (A) 01/20/2023 SCr: Lab Results Component Value Date CREATININE 6.52 (H) 04/20/2023 GFR: GFR MDRD Af Amer Date Value Ref Range Status 03/12/2021 15 (L) >59 ml/min/1.73sq.m Final GFR MDRD Non Af Amer Date Value Ref Range Status 03/12/2021 12 (L) >59 ml/min/1.73sq.m Final UACR: @LABLAST(albcreatra) No results found for: EXTPOCALB No results found for: EXTUMICOR Vitamin B12 Level: No results found for: [id number] Lipid Management: Lab Results Component Value Date CHOL 97 (L) 04/20/2023 HDL 40 04/20/2023 LDLCALC 38 04/20/2023 TRIG 97 04/20/2023 The ASCVD Risk score (Timbo FIGUEROA, et al., 2019) failed to calculate for the following reasons: The 2019 ASCVD risk score is only valid for ages 40 to 79 ADA Diabetes Quality Measures: Comments: Yearly labs due in March - A1c: Up to date 04/20/23; 6.8% - Kidney Screening: - SCr: Up to date 04/20/2023 - UACR: Up to date 04/20/2023 - Lipid Screening: Up to date 04/20/2023 - Eye Exam: See's yearly - Foot Exam: Patient sees Dr. Burns every 2 months - Dental Exam: 07/2022; partial plates - Tobacco User: No - On Aspirin: Yes - On SANDY/ARB: Yes - On Statin: Yes - Immunizations: Influenza Complete: Pneumonia Complete: Unknown Hepatitis B Complete: Unknown Shingles Complete: YES Tdap Complete: Yes Covid Complete: Yes Immunization History Administered Date(s) Administered COVID-19, mRNA, LNP-S, PF, 100mcg/0.5mL Dose 05/16/2020, 06/12/2020, 02/17/2021, 09/04/2021 Tdap 09/23/2019 Zoster Vaccine Recombinant 12/02/2022, 01/31/2023 ASSESSMENT/PLAN: ASSESSMENT: Type 2 Diabetes Mellitus: controlled as evidenced by hemoglobin A1c of 6.8 % on 04/20/2023 . Most recent 2 week blood glucose average: N/A mg/dL A1C has improved from 6.8% in March 2023 to 6.5% in June 2022 Glimepiride was reduced to 4 mg daily in March 2023 Patient reports appetite has been low; eating less overall Tolerating medication without concern No symptoms of hypo or hyperglycemia Glucose readings are stable, however given patient age favor for A1C to not reduce any further. We will decrease glimepiride dosing to lower risk of hypoglycemia. EDUCATION / ADA MEASURES: Reviewed general diabetes pathophysiology and management Reviewed A1C and blood glucose goals Reviewed signs and symptoms of hyperglycemia/hypoglycemia and how to treat Reviewed diabetes medication dosing, route, frequency, and side effects Encouraged using the Plate Method for healthy eating Provided educational handouts Requested to bring in blood sugar readings to next visit MEDICATION PLAN: Decrease glimepiride to 2 mg daily Patient A1C has decreased to 6.5% despite dose reduction of glimepiride ~3 months ago Favor for A1C to remain above 6.5% given patient age. Therefore, we will reduce glimepiride dosing Patient encouraged to call with any concerns. Symptoms and correction for hypoglycemia reviewed. Current medication regimen: Glimepiride 2 mg daily Refills needed on pertinent current medications/supplies: No Patient Assistance, Account Liaison Coupon, or Prior Authorization: No MONITORING: CGM: No Glucometer Testing: Daily (fasting) FOLLOW UP: Next PCP visit: 10/06/23 Next Pharmacist visit: 10/25/23; Check A1C Signature: Jesi Dominguez PharmD, [facility] 15 minute [id number] follow-up appointment. POC A1C obtained Jesi Dominguez RPH 07/21/23 1528 documented in this encounter [employer] 07-07-2023 History of Present illness Narrative Images from the original note were not included. [address] [facility] [place] [address] SUBJECTIVE: Patient ID: Patricia Valenzuela is a 88 y.o. male. 88 yo WM with cough with pleurisy x 2 weeks, CXR suggestive of infiltrates 1-2 weeks ago and would like treatment for this Glu 155 Pt does home dialysis q hs The following portions of the patient's history were reviewed and updated as appropriate: allergies, current medications, past family history, past medical history, past social history, past surgical history and problem list. REVIEW OF SYSTEMS: Review of Systems HENT: Positive for hearing loss. Respiratory: Positive for cough. Genitourinary: ED PHYSICAL EXAMINATION: Vitals: 07/07/23 1120 BP: 114/70 BP Site: Left Arm BP Postition: Sitting BP CUFF SIZE: M (9-13 inches) Pulse: 72 Resp: 16 Weight: 74.4 kg (164 lb) Height: 172.7 cm (5' 8 ) Physical Exam Vitals and nursing note reviewed. Constitutional: Appearance: Normal appearance. HENT: Head: Normocephalic and atraumatic. Right Ear: Tympanic membrane normal. Left Ear: Tympanic membrane normal. Eyes: Extraocular Movements: Extraocular movements intact. Pupils: Pupils are equal, round, and reactive to light. Cardiovascular: Rate and Rhythm: Normal rate and regular rhythm. Pulses: Normal pulses. Heart sounds: Normal heart sounds. Pulmonary: Breath sounds: Rhonchi and rales present. Skin: General: Skin is warm and dry. Neurological: General: No focal deficit present. Mental Status: He is alert and oriented to person, place, and time. Psychiatric: Mood and Affect: Mood normal. Behavior: Behavior normal. ASSESSMENT/PLAN: Patricia was seen today for routine check up. Diagnoses and all orders for this visit: Bronchopneumonia End stage renal disease ([facility]) Exudative age-related macular degeneration of left eye, unspecified stage ([facility]) Dependence on renal dialysis ([facility]) Malignant neoplasm of urinary bladder, unspecified site ([facility]) Arteriovenous fistula, acquired ([facility]) Seizures ([facility]) Diabetic nephropathy associated with type 2 diabetes mellitus ([facility]) Other orders - cefDINIR (OMNICEF) 300 mg capsule; Take 1 capsule (300 mg total) by mouth in the morning and 1 capsule (300 mg total) before bedtime. Do all this for 10 days. Follow-up: Cefdinir 300mg qAM x15d Reviewed CXR Recheck in3m documented in this encounter [facility] 07-05-2023 Miscellaneous Notes Fax received from [facility] Diabetic Standard Written Order, form filled out with below information and faxed to ICD-10 E11.21 Type 2 Diabetic Glucose Test Strips Test once a day Refill 8 times Not treated with Insulin or using Insulin Pump HBA1C 6.8 documented in this encounter [facility] 07-05-2023 Telephone encounter Note Fax received from [facility] Diabetic Standard Written Order, form filled out with below information and faxed to ICD-10 E11.21 Type 2 Diabetic Glucose Test Strips Test once a day Refill 8 times Not treated with Insulin or using Insulin Pump HBA1C 6.8 [facility] 02-23-2022 Note Presentation for Debra hernandez Evaluation Date: Committee Review Date: 02/22/2022 Organ being evaluated for: Kidney Transplant Phase: Referral Transplant Status: Deferred Referring Physician: Primary Diagnosis: Secondary Diagnosis: Committee Review Decision: Declined Committee Discussion Details: The candidate's evaluation was presented and discussed at the Kidney Multidisciplinary Selection Conference. After review of the candidate's diagnosis and the evaluations of the multidisciplinary team members, it was the consensus of the Selection Committee that the candidate does not meet Kidney Selection Criteria and is Declined for Kidney transplant. Physician: No concerns Surgeon: Patient referral was reviewed with Dr. 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 Social Work: No concerns Permastone Applicator: No concerns Pharmacist: No concerns Cytology Supervisor: No concerns I attest to the committee's decision for this patient. 02/24/2022 Obed Murrieta MD [facility] Evaluation note Diagnosis Bronchopneumonia- Primary Bronchopneumonia, organism unspecified End stage renal disease ([facility]) End stage renal disease Exudative age-related macular degeneration of left eye, unspecified stage ([facility]) Dependence on renal dialysis ([facility]) Renal dialysis status Malignant neoplasm of urinary bladder, unspecified site ([facility]) Arteriovenous fistula, acquired ([facility]) Arteriovenous fistula, acquired Seizures ([facility]) Other convulsions Diabetic nephropathy associated with type 2 diabetes mellitus ([facility]) documented [facility] this [facility] Diagnosis Diabetes mellitus without complication ([facility])- Primary Type II or unspecified type diabetes mellitus without mention of complication, not stated as uncontrolled documented [facility] this [facility]* Diagnosis Diabetes mellitus without complication ([facility]) Type II or unspecified type diabetes mellitus without mention of complication, not stated as uncontrolled [facility] Diagnosis Onset Date Resolution Status Impacted cerumen of left ear acute Left otitis media [facility] Work Phone: InstructionsNot on filedocumented in this encounter [facility] filedocumented in this encounter [facility] SystemInstructionsNot on filedocumented in this encounter [facility]* Attachments The following attachments cannot be sent through Care Everywhere. * Dialysis and diet (Turkmen) [facility] SystemInstructionsNot on file [facility] SystemInstructionsNot on file [facility] Summary Purpose Family History No Family History Records FoundNo Family History Records FoundNo Family History Records FoundNo Family History Records FoundNo Family History Records Found Advance Directives Advance Directive Response Recorded Date/ Time Advance Directives No September 08 4 9:41am Chief Complaint and Reason for Visit Chief Complaint Sore throat, headach es Reason for Visit Impacted cerumen of left ear Left otitis media Additional Source Comments (unrecognized sect ion and content) No Status Records FoundNo Status Records FoundNo Status Records FoundNo Status Records FoundNo Status Records Found INFORMATION SOURCE (unrecogn ized section and content) DATE CREATED AUTHOR 02/25/[address] [facility] DATE CREATED AUTHOR AUTHOR'S ORGANIZ ATION 03/31/2023 [facility] DATE CREATED AUTHOR AUTHOR'S ORGANIZ ATION 06/29/2023 [facility] DATE CREATED AUTHOR AUTHOR'S ORGANIZ ATION 07/14/2023 [facility] DATE CREATED AUTHOR AUTHOR'S ORGANIZ ATION [facility] Reason for Visit (unrecogniz ed section and content) Reason Comments Med Refill Reason Comments Routine Check up Reason Comments Diabetes Mellitus MTM Follow-up Visit Care Teams (unrecognized sec tion and content) Dental Technician Apprentice Relationship Specialty Start Date End Date Patricia Starr MD [address] [place] [address] PCP - General Family Medicine 04/20/16 Dental Technician Apprentice Relationship Specialty Start Date End Date Patricia Starr MD [address] [place] [address] PCP - General Family Medicine 04/20/16 Dental Technician Apprentice Relationship Specialty Start Date End Date Patricia Starr MD [address] [place] [address] PCP - General Family [facility] 04/20/16 Dental Technician Apprentice Relationship Specialty Start Date End Date Patricia Starr MD [address] [place] [address] PCP - General [facility] 04/20/16 Dental Technician Apprentice Relationship Specialty Start Date End Date Patricia Starr MD [address] [place] [address] PCP - General Family Medicine 04/20/16 Dental Technician Apprentice Relationship Specialty Start Date End Date Patricia Starr MD [address] [place] [address] PCP - General Family Medicine 04/20/16 Team Status: Active Member Role Status Dates Patricia Starr MD Primary Care Provider Active Team Status: Inactive Member Role Status Dates Jenn Powell APRN Attending Provider Active Start: September 09, 2023 End: September 09, 2023 Patricia Starr MD Primary Care Provider Active Start: September 09, 2023 End: September 09, 2023 Goals (unrecognized section and content) Goals may be documented in a n alternate section FOR RECORDS PERTAINING TO PATIENTS WHO ARE OR HAVE BEEN ENROLLED IN A CHEMICAL DEPENDENCY/SUBSTANCEABUSE PROGRAM, SOME INFORMATION MAY BE OMITTED. This clinical summary was aggregated from multiple sources. Caution should be exercised in using it in the provision of clinical care. This summary normalizes information from multiple sources, and as a consequence, information in this document may materially change the coding, format and clinical context of patient data. In addition, data may be omitted in some cases. CLINICAL DECISIONS SHOULD BE BASED ON THE PRIMARY CLINICAL RECORDS. [facility]. provides no warranty or guarantee of the accuracy or completeness of information in this document.
[2023-09-29] MEDS: 0.9 % SODIUM CHLORIDE 1,000 ML 50 ML IV (12:17)
[2023-09-29] MEDS: LIDOCAINE HCL 1% 100 MG/10 ML MDV INJ (12:55)
[2023-09-29] MEDS: BUPIVACAINE HCL 0.5% PF 50 MG/10 ML VIAL INJ (12:55)
[2023-09-29 13:19] VITALS: BP 133/59; PULSE 90; TEMP 36.1; O2SAT 96
--- NOTE | 2023-09-29 13:22 | W.PM.OPNOTE ---
Surgery Operative Note Operative Note Procedure Date: 09/29/23 Time Out Performed: yes Pre-op Diagnosis: Giant cell arteritis Post-op Diagnosis: same as pre-op Anesthesia: MAC Primary Surgeon: Cristian Dixon
[2023-09-29 13:34] VITALS: BP 136/68; PULSE 92; O2SAT 94
[2023-09-29 13:49] VITALS: BP 154/73; PULSE 93; O2SAT 96
--- NOTE | 2023-09-29 14:42 | W.PM.OPNOTE ---
Surgery Operative Note Operative Note Procedure Date: 09/29/23 Time Out Performed: yes Pre-op Diagnosis: Giant cell arteritis Post-op Diagnosis: same as pre-op Procedures performed: Left temporal artery biopsy Anesthesia: MAC Primary Surgeon: Cristian Dixon Complications: None Estimated blood loss (mL): 5 Findings: The artery was she was and friable. It was extremely friable it broke into 3 different pieces 1 cm 2 pieces and half centimeter the third piece. All were sent for pathology. Specimens: Right temporal artery Drains: None Indications for Procedures: This is a very pleasant 88-year-old gentleman with left-sided headache and left vision loss who was sent to us for temporal artery biopsy. The headache is isolated to the left side. Detailed description of Procedure: The patient was taken back to the operating room placed in the supine position appropriate cardiopulmonary monitors were set monitors AC-OK care was induced. The left temporal area was prepped and draped in usual sterile surgical fashion. Head: 2-1/2 cm incision was made over the temporal artery. This was taken down with the Bovie to the level of the artery. The artery was carefully dissected the branches were clipped. The artery was very friable. At 1 point pulsatile bleeding came out just from gentle retraction to tie off the ends. The 2 ends were tied in the artery was sent as permanent pathology sample. There were 3 different pieces 1 cm 2 pieces and 1/2 cm third piece. They were all and continue to initially however because of friable ability they were broken. The wound was then evaluated hemostasis was achieved and the wound was closed using interrupted 4-0 Monocryl and Steri-Strips. Patient tolerated the procedure very well. Post Operative care instructions: Okay to shower in 3 days. Follow-up within 1 to 2 weeks.
== END 2023-09-29 14:05 | disposition home or self-care (01) ==
PROVIDERS: PCP Family Medicine; Visit Provider Student in an Organized Health Care Education/Training Program
PROC: (CPT 37609; principal; 2023-09-29 12:10)
DX: M31.6 Other giant cell arteritis (principal); R51.9 Headache, unspecified; H54.62 Unqualified visual loss, left eye, normal vision right eye
CPT/HCPCS: 37609; 88305; J0665; J2704; J3010